=== PATIENT | male | born 2000 | race Caucasian/White ===

== ENCOUNTER 2019-01-15 07:38 | Emergency (ER) | payer MEDICAID, OTHER ==
[~2019-01-15] VITALS: Ht 180.3 cm; Wt 75.3 kg
[2019-01-15] MEDS ORDERED: AMOX875T2 (07:59)
[2019-01-15] MEDS ORDERED: BUSP15TA60 (07:59)
[2019-01-15] MEDS ORDERED: ACETAMINOPHEN 500 MG TAB (TYLENOL) PO STA (08:00)
[2019-01-15] MEDS ORDERED: ONDANSETRON 4 MG/2 ML (SDV) Z0FRAN IVP STA (08:00)
[2019-01-15] MEDS: NS IV 1000 ML 1,000 ML IV SCH ×2 (08:13→09:13)
--- NOTE | 2019-01-15 08:18 | ED Fever ---
History of Present Illness General Chief Complaint: Fever-Adult/Adol Stated Complaint: VOMITING; SORE THROAT; FEVER Source: patient, spouse History of Present Illness Date Seen by Provider: Jan 15, 2019 Time Seen by Provider: 07:43 Initial Comments 19 yo M presenting with high fever, sore throat, vomiting, cough, nasal congestion. He was exposed to a nephew with strep throat. The next day he started running high fevers and feeling bad. He was seen yesterday in urgent car e and had a negative strep swab. He was told that his teeth were hadn't that that was probably causing his fever. He was started on amoxicillin and took one dose but he said that that made him feel worse so he has not taken anymore. He has had repeated episodes of vomiting. He has had problems with vomiting prior to being sick. He was prescribed Buspirone to take for his vomiting but he felt it wasn't working so he stopped taking it and was to see Dr. Gray today about that. However when he woke up with high fever again this am they came in to the ED instead to be seen. He has some nasal drainage and congestion as well. He has had coughing and vomiting after coughing. He has been vomiting so hard that he has seen some streaks of blood in the vomit. He has no abdominal pain. He has a headache as well. He has pain with swallowing, worse on the right side. He has not taken anything for fever prior to coming to the ED. He last had Ibuprofen 400 mg around 2 am. Allergies and Home Medications Allergies Coded Allergies: No Known Drug Allergies (Unverified , 01/15/19) Home Medications Amoxicillin 500 Mg Capsule, 500 MG PO TID Prescribed by: DONOVAN ALVARADO on 01/15/19 1026 Ondansetron 4 Mg Tab.rapdis, 4 MG PO Q6H PRN for NAUSEA/VOMITING Prescribed by: DONOVAN ALVARADO on 01/15/19 1031 Patient Home Medication List Home Medication List Reviewed: Yes Review of Systems Review of Systems Constitutional: chills, fever, malaise EENTM: dental problems (dental sensitivity), nose congestion, throat pain; No ear discharge, No ear pain, No mouth pain, No mouth swelling, No epistaxis Respiratory: cough (with nasal drainage); No phlegm, No short of breath, No stridor, No wheezing Cardiovascular: No chest pain, No palpitations Gastrointestinal: No abdominal pain, No diarrhea; vomiting (post tussive emesis) Genitourinary: No dysuria Musculoskeletal: muscle pain (generalized) Skin: No rash Psychiatric/Neurological: Anxiety, Headache Past Cgihhnp-Phkvkx-Vgxsat Hx Past Med/Social Hx: Reviewed Nursing Past Med/Soc Hx Patient Social History Alcohol Use: Denies Use Recreational Drug Use: Yes (reports Vaping but then smokes THC also) Drug of Choice: THC Smoking Status: Current Everyday Smoker Type Used: Electronic/Vapor Recent Hopitalizations: No Physical Abuse: No Sexual Abuse: No Mistreated: No Fear: No Immunizations Up To Date PED Vaccines UTD: Yes Seasonal Allergies Seasonal Allergies: No Past Medical History Surgeries: No Respiratory: No Cardiac: No Neurological: No Genitourinary: No Gastrointestinal: No Musculoskeletal: No Endocrine: No HEENT: No Cancer: No Psychosocial: Yes (Social anxiety) Anxiety Integumentary: No Blood Disorders: No Physical Exam Vital Signs - First Documented 01/15/19 07:44 Temp 40.1 Pulse 137 Resp 18 B/P (MAP) 95/51 (66) Pulse Ox 97 O2 Delivery Room Air Capillary Refill : Height: '" Weight: lbs. oz. kg; BMI Method: General Appearance: WD/WN, mild distress HEENT: PERRL/EOMI; No photophobia; pharyngeal erythema (with edema and irritation from cough and emesis); No tonsillar exudate; other (bilateral TMs are dull with effusion. No erythema) Neck: full range of motion, supple, lymphadenopathy (R), lymphadenopathy (L) Respiratory: chest non-tender, lungs clear, normal breath sounds, no respiratory distress, no accessory muscle use Cardiovascular: normal peripheral pulses, tachycardia Gastrointestinal: normal bowel sounds, non tender, soft Extremities: normal range of motion, non-tender, normal capillary refill Neurologic/Psychiatric: alert, oriented x 3 Skin: normal color, warm/dry Focused Exam Lactate Level 01/15/19 08:00: Lactic Acid Level 1.56 Lactic Acid Level Laboratory Tests Test 01/15/19 08:00 Lactic Acid Level 1.56 MMOL/L (0.50-2.00) Progress/Results/Core Measures Suspected Sepsis SIRS Temperature: Pulse: Respiratory Rate: Laboratory Tests 01/15/19 08:00: White Blood Count 10.5 Blood Pressure / Mean: 01/15/19 08:00: Lactic Acid Level 1.56 Laboratory Tests 01/15/19 08:00: Creatinine 1.00, Platelet Count 191, Total Bilirubin 0.7 Results/Orders Lab Results Laboratory Tests Test 01/15/19 08:00 01/15/19 08:05 Range/Units White Blood Count 10.5 4.3-11.0 10^3/uL Red Blood Count 5.04 4.35-5.85 10^6/uL Hemoglobin 14.6 13.3-17.7 G/DL Hematocrit 43 40-54 % Mean Corpuscular Volume 85 80-99 FL Mean Corpuscular Hemoglobin 29 25-34 PG Mean Corpuscular Hemoglobin Concent 34 32-36 G/DL Red Cell Distribution Width 12.1 10.0-14.5 % Platelet Count 191 130-400 10^3/uL Mean Platelet Volume 9.8 7.4-10.4 FL Neutrophils (%) (Auto) 91 H 42-75 % Lymphocytes (%) (Auto) 6 L 12-44 % Monocytes (%) (Auto) 2 0-12 % Eosinophils (%) (Auto) 0 0-10 % Basophils (%) (Auto) 0 0-10 % Neutrophils # (Auto) 9.6 H 1.8-7.8 X 10^3 Lymphocytes # (Auto) 0.6 L 1.0-4.0 X 10^3 Monocytes # (Auto) 0.3 0.0-1.0 X 10^3 Eosinophils # (Auto) 0.0 0.0-0.3 10^3/uL Basophils # (Auto) 0.0 0.0-0.1 10^3/uL Neutrophils % (Manual) 83 % Lymphocytes % (Manual) 6 % Monocytes % (Manual) 3 % Eosinophils % (Manual) 0 % Basophils % (Manual) 0 % Band Neutrophils 8 % Sodium Level 139 135-145 MMOL/L Potassium Level 4.4 3.6-5.0 MMOL/L Chloride Level 101 98-107 MMOL/L Carbon Dioxide Level 26 21-32 MMOL/L Anion Gap 12 5-14 MMOL/L Blood Urea Nitrogen 13 7-18 MG/DL Creatinine 1.00 0.60-1.30 MG/DL Estimat Glomerular Filtration Rate > 60 BUN/Creatinine Ratio 13 Glucose Level 129 H 70-105 MG/DL Lactic Acid Level 1.56 0.50-2.00 MMOL/L Calcium Level 9.6 8.5-10.1 MG/DL Corrected Calcium 8.5-10.1 MG/DL Total Bilirubin 0.7 0.1-1.0 MG/DL Aspartate Amino Transf (AST/SGOT) 19 5-34 U/L Alanine Aminotransferase (ALT/SGPT) 17 0-55 U/L Alkaline Phosphatase 98 40-136 U/L Total Protein 7.8 6.4-8.2 GM/DL Albumin 4.9 H 3.2-4.5 GM/DL Group A Streptococcus Screen NEGATIVE NEGATIVE Micro Results Microbiology 01/15/19 Influenza Types A,B Antigen (LEXI) - Final, Complete My Orders Orders - DONOVAN ALVARADO MD Cbc With Automated Diff (01/15/19 07:58) Comprehensive Metabolic Panel (01/15/19 07:58) Blood Culture (01/15/19 07:58) Rapid Strep A Screen (01/15/19 07:58) Ua Culture If Indicated (01/15/19 07:58) Ed Iv/Invasive Line Start (01/15/19 07:58) Lactic Acid Analyzer (01/15/19 07:58) Influenza A And B Antigens (01/15/19 07:58) Ns Iv 1000 Ml (Sodium Chloride 0.9%) (01/15/19 08:00) Ondansetron Injection (Zofran Injectio (01/15/19 08:00) Acetaminophen Tablet (Tylenol Tablet) (01/15/19 08:00) Manual Differential (01/15/19 08:00) Ns Iv 1000 Ml (Sodium Chloride 0.9%) (01/15/19 10:05) Ceftriaxone For Iv Use (Rocephin For I (01/15/19 10:05) Ketorolac Injection (Toradol Injection) (01/15/19 10:27) Vital Signs/I&O 01/15/19 01/15/19 01/15/19 01/15/19 07:44 09:13 09:29 11:05 Temp 40.1 39.8 38.9 37.5 Pulse 137 106 78 Resp 18 16 18 B/P (MAP) 95/51 (66) 99/44 97/62 Pulse Ox 97 97 98 O2 Delivery Room Air Room Air Room Air Capillary Refill : Progress Note #1: Progress Note With his high fever and tachycardia will obtain blood cultures, lactic acid, repeat the rapid strep screen since he was exposed with the nephew as well as obtain a rapid flu swab since he has had some nasal congestion and cough. Will give IV fluids for hydration and Zofran for nausea, acetaminophen for fever. Progress Note #2: Progress Note Labs show negative strep and flu swab. He has WBC count of 10.5 and negative Lactic acid. His chemistry panel is normal. He feels a little better after treatment with 2 L of IVF and acetaminophen. His temp is down as well. He was counseled on results and advised that he could get a dose of IM antibiotics rather than have to take oral antibiotic but he refused that and wanted something that would not be so big. He was having to cut the pill up but was still making him gag and throw up. Will give a 3rd L of NS since his HR is still around 100 and give 1 gm of Rocephin iv. Discharge on Amoxicillin 500 mg TID instead of the 875 BID and a script for zofran 4 mg ODT q 6 h prn n/v. Will also give him Toradol 30 mg IV for his headache Departure Impression Primary Impression: Pharyngitis, acute Qualified Codes: J02.0 - Streptococcal pharyngitis Additional Impressions: Fever in adult Dehydration Exposure to strep throat Disposition: 01 HOME, SELF-CARE Condition: Improved Departure-Patient Inst. Decision time for Depature: 10:21 Referrals: JAZLYN GRAY MD (PCP/Family) Primary Care Physician Patient Instructions: Dehydration, Adult (DC), Sore Throat, Adult (DC), Strep Throat (DC) Add. Discharge Instructions: Push fluids and rest. Take the antibiotics until gone. Follow up with Dr. Gray for continued concerns/problems. All discharge instructions reviewed with patient and/or family. Voiced understanding. Scripts Ondansetron (Ondansetron Odt) 4 Mg Tab.rapdis 4 MG PO Q6H PRN for NAUSEA/VOMITING for 2 Days, #8 TAB 0 Refills Prov: DONOVAN ALVARADO MD 01/15/19 Amoxicillin (Amoxicillin) 500 Mg Capsule 500 MG PO TID for strep throat for 10 Days, #30 CAP Prov: DONOVAN ALVARADO MD 01/15/19 DONOVAN ALVARADO MD Jan 15, 2019 08:18
[2019-01-15 08:23] LABS: HEMATOCRIT 43 % (40-54); HEMOGLOBIN 14.6 G/DL (13.3-17.7); MEAN CORPUSCULAR HEMOGLOBIN 29 PG (25-34); MEAN CORPUSCULAR VOLUME 85 FL (80-99); WHITE BLOOD COUNT 10.5 10^3/uL (4.3-11.0)
[2019-01-15 08:24] LABS: BASOPHILS % (AUTO) 0 % (0-10); EOSINOPHILS % (AUTO) 0 % (0-10); LYMPHOCYTES # (AUTO) 0.6 X 10^3 (1.0-4.0); LYMPHOCYTES % (AUTO) 6 % (12-44); MEAN CORPUSCULAR HGB CONC 34 G/DL (32-36); MEAN PLATELET VOLUME 9.8 FL (7.4-10.4); MONOCYTES # (AUTO) 0.3 X 10^3 (0.0-1.0); MONOCYTES % (AUTO) 2 % (0-12); NEUTROPHILS # (AUTO) 9.6 X 10^3 (1.8-7.8); NEUTROPHILS % (AUTO) 91 % (42-75); PLATELET COUNT 191 10^3/uL (130-400); RED CELL DISTRIBUTION WIDTH 12.1 % (10.0-14.5)
[2019-01-15 08:42] LABS: ALANINE AMINOTRANSFERASE 17 U/L (0-55); ALKALINE PHOSPHATASE 98 U/L (40-136); BILIRUBIN,TOTAL 0.7 MG/DL (0.1-1.0); BUN/CREATININE RATIO 13; CALCIUM 9.6 MG/DL (8.5-10.1); CARBON DIOXIDE 26 MMOL/L (21-32); CHLORIDE 101 MMOL/L (98-107); GFR ESTIMATED > 60; GLUCOSE 129 MG/DL (70-105); POTASSIUM 4.4 MMOL/L (3.6-5.0); SODIUM 139 MMOL/L (135-145); TOTAL PROTEIN 7.8 GM/DL (6.4-8.2)
[2019-01-15 08:43] LABS: ALBUMIN 4.9 GM/DL (3.2-4.5)
[2019-01-15 08:52] LABS: BAND NEUTROPHILS 8 %; BASOPHILS % (MANUAL) 0 %; EOSINOPHILS % (MANUAL) 0 %; LYMPHOCYTES % (MANUAL) 6 %; MONOCYTES % (MANUAL) 3 %; NEUTROPHILS % (MANUAL) 83 %
--- NOTE | 2019-01-15 09:12 | NUR ---
Pt resting on exam table with eyes closed, significant other leaving. #1 L NS infused.
--- NOTE | 2019-01-15 09:29 | NUR ---
Pt resting on abd on exam table sleeping. Vitals obtained. IV remains patent infusing.
[2019-01-15] MEDS ORDERED: NS IV 1000 ML 1,000 ML IV STA (10:05)
[2019-01-15] MEDS ORDERED: cefTRIAXone FOR IV USE 1,000 MG in WATER (STERILE) FOR INJECTION 10 ML IV STA (10:05)
[2019-01-15] MEDS ORDERED: AMOX500C2 PO (10:26)
[2019-01-15] MEDS ORDERED: KETOROLAC 30 MG/ML VIAL IVP STA (10:27)
[2019-01-15] MEDS ORDERED: ONDA4TAB11 PO (10:31)
[2019-01-15 11:05] VITALS: BP 97/62
== END 2019-01-15 11:05 | disposition home or self-care (01) ==
LOC: EDUNIT# 07:38 → ER FS 07:39
DX: J02.9 Acute pharyngitis, unspecified (principal); E86.0 Dehydration; F41.9 Anxiety disorder, unspecified; F17.290 Nicotine dependence, other tobacco product, uncomplicated; Z20.818 Contact with and (suspected) exposure to other bacterial communicable diseases
CPT/HCPCS: 80053; 83605; 85007; 87040; 87430; 87804

== ENCOUNTER 2019-06-06 15:58 | Emergency (ER) | payer MEDICAID ==
[~2019-06-06] VITALS: Ht 182 cm; Wt 81.0 kg
[~2019-06-06 15:58] MED LIST: AMOX500C2 PO; AMOX875T2; BUSP15TA60; ONDA4TAB11 PO
[2019-06-06] MEDS ORDERED: ONDANSETRON 4 MG/2 ML (SDV) Z0FRAN IVP STA (16:11)
[2019-06-06] MEDS ORDERED: NS IV 1000 ML 1,000 ML IV STA (16:11)
[2019-06-06] MEDS ORDERED: fentaNYL INJECTION 100 MCG/2 ML AMP IVP STA ×2 (16:11→16:48)
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
[2019-06-06 16:37] LABS: BASOPHILS % (AUTO) 0 % (0-10); EOSINOPHILS # (AUTO) 0.1 10^3/uL (0.0-0.3); EOSINOPHILS % (AUTO) 1 % (0-10); HEMATOCRIT 43 % (40-54); LYMPHOCYTES % (AUTO) 25 % (12-44); MEAN CORPUSCULAR HEMOGLOBIN 29 PG (25-34); MEAN CORPUSCULAR HGB CONC 35 G/DL (32-36); MEAN CORPUSCULAR VOLUME 84 FL (80-99); MEAN PLATELET VOLUME 9.2 FL (7.4-10.4); MONOCYTES # (AUTO) 0.4 X 10^3 (0.0-1.0); MONOCYTES % (AUTO) 5 % (0-12); NEUTROPHILS # (AUTO) 5.4 X 10^3 (1.8-7.8); NEUTROPHILS % (AUTO) 68 % (42-75); PLATELET COUNT 249 10^3/uL (130-400); WHITE BLOOD COUNT 7.9 10^3/uL (4.3-11.0)
[2019-06-06 16:54] LABS: ALKALINE PHOSPHATASE 93 U/L (40-136); BILIRUBIN,TOTAL 0.3 MG/DL (0.1-1.0); BUN/CREATININE RATIO 15; CALCIUM 9.5 MG/DL (8.5-10.1); CARBON DIOXIDE 25 MMOL/L (21-32); CHLORIDE 100 MMOL/L (98-107); CREATININE SERUM 0.86 MG/DL (0.60-1.30); GFR ESTIMATED > 60; GLUCOSE 123 MG/DL (70-105); POTASSIUM 3.4 MMOL/L (3.6-5.0); PROTHROMBIN TIME PATIENT 13.2 SEC (12.2-14.7); SODIUM 140 MMOL/L (135-145)
[2019-06-06 16:55] LABS: ALANINE AMINOTRANSFERASE 27 U/L (0-55); ALBUMIN 4.7 GM/DL (3.2-4.5); TOTAL PROTEIN 7.4 GM/DL (6.4-8.2)
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
[2019-06-06 17:42] LABS: BILIRUBIN,URINE NEGATIVE (NEGATIVE); CLARITY,URINE CLEAR; COLOR,URINE YELLOW; GLUCOSE, URINE (UA) NEGATIVE (NEGATIVE); KETONES,URINE NEGATIVE (NEGATIVE); LEUKOCYTE ESTERASE ,URINE NEGATIVE (NEGATIVE); NITRITE,URINE NEGATIVE (NEGATIVE); PH,URINE 5.5 (5-9); PROTEIN,URINE NEGATIVE (NEGATIVE)
[2019-06-06 17:49] LABS: AMPHETAMINE SCREEN, URINE NEGATIVE (NEGATIVE); BARBITURATE SCREEN URINE NEGATIVE (NEGATIVE); BENZODIAZEPINES SCREEN URINE NEGATIVE (NEGATIVE); CANNABINOID SCREEN, URINE NEGATIVE (NEGATIVE); COCAINE SCREEN URINE NEGATIVE (NEGATIVE); METHADONE STAT NEGATIVE (NEGATIVE); METHAMPHETAMINE SCREEN URINE S NEGATIVE (NEGATIVE); OPIATE SCREEN URINE NEGATIVE (NEGATIVE); OXYCODONE STAT NEGATIVE (NEGATIVE); PROPOXYPHENE STAT NEGATIVE (NEGATIVE); TRICYCLIC ANTIDEPRESSANTS SCRE NEGATIVE (NEGATIVE)
[2019-06-06] MEDS ORDERED: fentaNYL INJECTION 100 MCG/2 ML AMP IVP ONE (18:30)
[2019-06-06] MEDS ORDERED: RX-HYDROCODONE/APAP 5/325 MG #4 TAB PK PO PRN (18:30)
[2019-06-06] MEDS ORDERED: RX-ONDANSETRON 4 MG ODT (ZOFRAN) PPK #4 PO PRN (19:15)
[2019-06-06] MEDS ORDERED: ACHD5005 PO (19:35)
[2019-06-06] MEDS ORDERED: IBUP-1780 PO (19:35)
[2019-06-06] MEDS ORDERED: ONDA4TAB11 PO (19:35)
[2019-06-06 19:38] VITALS: BP 96/70
== END 2019-06-06 19:38 | disposition home or self-care (01) ==
LOC: EDUNIT# 15:58 → ER FS 16:00
DX: S52.571A Other intraarticular fracture of lower end of right radius, initial encounter for closed fracture (principal); S52.611A Displaced fracture of right ulna styloid process, initial encounter for closed fracture; S92.415A Nondisplaced fracture of proximal phalanx of left great toe, initial encounter for closed fracture; S00.81XA Abrasion of other part of head, initial encounter; S60.511A Abrasion of right hand, initial encounter; S60.512A Abrasion of left hand, initial encounter; V86.99XA Unspecified occupant of other special all-terrain or other off-road motor vehicle injured in nontraffic accident, initial encounter
CPT/HCPCS: 29105; 36415; 73110; 73130; 73562; 73630; 80053; 80306; 80320; 81000; 85025; 85610; 85730

== ENCOUNTER 2023-01-20 19:09 | Emergency (ER) | payer MEDICAID ==
[~2023-01-20] VITALS: Ht 182.8 cm; Wt 92.6 kg
[~2023-01-20 19:09] MED LIST changes: +ACHD5005 PO; +IBUP-1780 PO
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
[2023-01-20 20:08] VITALS: BP 131/85
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
== END 2023-01-20 20:08 | disposition home or self-care (01) ==
LOC: EDUNIT# 19:09 → ER FS 19:11
DX: S62.317A Displaced fracture of base of fifth metacarpal bone, left hand, initial encounter for closed fracture (principal); W22.8XXA Striking against or struck by other objects, initial encounter
CPT/HCPCS: 29125; 73110